=== PATIENT | female | born 1970 | race Native Hawaiian/Other Pacific Islander ===

== ENCOUNTER 2016-10-15 17:15 | Inpatient (IN) | payer BC, OTHER ==
[2016-10-15] VITALS (15 sets, daily range): BP systolic 89–153; BP diastolic 62–103; PULSE 81–97; RESP 14–26; TEMP 98.4–98.6; O2SAT 84–100
[~2016-10-15] VITALS: Ht 167.6 cm; Wt 76.4 kg
[~2016-10-15 17:15] MED LIST: HYDR-2952 PO; LORT5TAB PO; OMEP20CA5 PO; PENVK500 PO; PROM25SU8 PO
[2016-10-15] MEDS ORDERED: NITROGLYCERIN 0.4 MG SL 25 TABS/BTL SL STA (17:51)
[2016-10-15] MEDS ORDERED: ASPIRIN 81 MG CHEW TAB PO STA (17:51)
[2016-10-15] MEDS ORDERED: HEPARIN SODIUM - IV 10,000 UNITS/10 ML VIAL IV STA (17:51)
[2016-10-15] MEDS ORDERED: SODIUM CHLOR 0.9% 1000 ML INJ 1,000 ML IV ONE (17:51)
[2016-10-15] MEDS ORDERED: SODIUM CHLORIDE 0.9% FLUSH 5 ML FLUSH IVF PRN ×2 (18:00→20:00)
[2016-10-15] MEDS ORDERED: NITROGLYCERIN-DEXTROSE INJ 250 ML IV SCH (18:00)
--- NOTE | 2016-10-15 18:12 | RADRPT ---
EXAM DATE/TIME: 10/15/2016 17:58 [facility] COMPARISON: No previous studies available for comparison. INDICATIONS : Stemi-alert. Chest pain. MEDICAL HISTORY : Unobtainable. SURGICAL HISTORY : Unobtainable. ENCOUNTER: Initial ACUITY: 1 day PAIN SCORE: 10/10 LOCATION: Bilateral chest FINDINGS: A single view of the chest demonstrates the lungs to be symmetrically aerated without evidence of mas s, infiltrate or effusion. The cardiomediastinal contours are unremarkable. Osseous structures are intact. CONCLUSION: No acute disease. Viraj Mittal MD FACR on October 15, 2016 at 18:10 Board Certified Radiologist. This report was verified electronically.
[2016-10-15 18:25] LABS: AUTOMATED NEUTROPHIL # 7.2 TH/MM3 (1.8-7.7); BASOPHIL # 0.1 TH/MM3 (0-0.2); BASOPHIL % 0.6 % (0.0-2.0); EOSINOPHIL # 0.1 TH/MM3 (0-0.4); HEMATOCRIT 43.7 % (35.0-46.0); HEMO FLAGS DIFF FINAL; LYMPH % 31.9 % (9.0-44.0); LYMPHOCYTE # 3.9 TH/MM3 (1.0-4.8); MEAN CELL VOLUME 86.5 FL (80.0-100.0); MEAN CORPUSCULAR HEMOGLOBIN 29.2 PG (27.0-34.0); MEAN CORPUSCULAR HGB CONC 33.7 % (32.0-36.0); MONO % 8.1 % (0.0-8.0); NEUT % 58.4 % (16.0-70.0); PLATELET COUNT 419 TH/MM3 (150-450); RED BLOOD COUNT 5.05 MIL/MM3 (4.00-5.30); WHITE BLOOD COUNT 12.3 TH/MM3 (4.0-11.0)
[2016-10-15 18:31] LABS: I-STAT POTASSIUM 3.5 MMOL/L (3.5-4.9)
[2016-10-15 18:35] LABS: APTT (PATIENT) 27.7 SEC (24.3-30.1); INTERNATIONAL NORMALIZED RATIO 0.9 RATIO; PROTHROMBIN TIME - PATIENT 10.4 SEC (9.8-11.6)
[2016-10-15] MEDS ORDERED: IOHEXOL 350 MG/ML 100 ML BTL (for Cath Lab) OTHER ONE (18:39)
[2016-10-15] MEDS ORDERED: IOHEXOL 350 MG/ML 10 ML VIAL (for RAD DIAG) IV ONE (18:39)
[2016-10-15] MEDS ORDERED: IOHEXOL 350 MG/ML 50 ML BTL (for Cath Lab) OTHER ONE (18:39)
[2016-10-15] MEDS ORDERED: LIDOCAINE HCL 1% PF 30 ML VIAL ONE (18:45)
[2016-10-15] MEDS ORDERED: HEPARIN-NS/PF INJ 500 ML ONE ×3 (18:45→18:48)
--- NOTE | 2016-10-15 18:46 | RADRPT ---
EXAM DATE/TIME: 10/15/2016 18:23 [facility] COMPARISON: No previous studies available for comparison. INDICATIONS : Chest pain and hypoxia. IV CONTRAST: 50 cc Omnipaque 350 (iohexol) IV RADIATION DOSE: 24.64 CTDIvol (mGy) MEDICAL HISTORY : None documented. SURGICAL HISTORY : None documented. ENCOUNTER: Initial ACUITY: 1 day PAIN SCALE: 10/10 LOCATION: Chest TECHNIQUE: Volumetric scanning of the chest was performed using a pulmonary embolism protocol MIP images were reconstructed. Using automated exposure control and adjustment of the mA and/or kV acco rding to patient size, radiation dose was kept as low as reasonably achievable to obtain optimal diag nostic quality images. FINDINGS: Moderate peribronchial thickening is present. There is no evidence for central pulmona ry emboli. There is no coronary artery calcification. There is no evidence for dissection. CONCLUSION: 1. Negative for central pulmonary emboli. 2. Mild peribronchial thickening without alveolar consolidation, pleural effusion or pneumothorax. Viraj Mittal MD FACR on October 15, 2016 at 18:40 Board Certified Radiologist. This report was verified electronically.
[2016-10-15 18:52] LABS: MAGNESIUM 2.2 MG/DL (1.5-2.5)
[2016-10-15] MEDS ORDERED: MIDAZOLAM HCL 2 MG/2 ML VIAL ONE (18:58)
[2016-10-15] MEDS ORDERED: TICAGRELOR 90 MG TAB PO ONE ×2 (19:24→20:00)
--- NOTE | 2016-10-15 19:33 | PD ---
HPI Chief Complaint: Chest Pain Time Seen by Provider: 17:42 Travel History International Travel<30 days: No Contact w/Intl Traveler<30days: No Traveled to known affect area: No History of Present Illness HPI So 46-year-old woman who presents to the emergency department complaining of chest pain. States he's had intermittent chest pain for months since July. She describes it as squeezing pressure on her chest between her shoulder blades in the back. She states she was seen for the pain once several months ago in [facility], where she had a workup including a CAT scan of her chest that was negative. No further cardiac evaluation. Symptoms started today at work and are similar to when she's had pain in the past much worse than she typically has them. The been constant. She's had sweating. No shortness of breath. No nausea or vomiting. She otherwise had been feeling generally well and healthy. In between episodes she feels completely well and healthy. She has states she started control pills in July around the onset of the symptoms. No leg pain or swelling. No history of DVT or PE. History Past Medical History Medical History: Denies Significant Hx Influenza Vaccination: No Past Surgical History Surgical History: No Previous Surgery Social History Alcohol Use: No Tobacco Use: Yes (1 PPD) Allergies-Medications (Allergen,Severity, Reaction): Coded Allergies: Aspirin (Verified Allergy, Severe, 10/15/16) Penicillin (Verified Allergy, Unknown, 10/15/16) Reported Meds & Prescriptions Reported Meds & Active Scripts Active No Active Prescriptions or Reported Medications Review of Systems Except as stated in HPI: all other systems reviewed are Neg Physical Exam Narrative GENERAL: 46 year-old woman, appears uncomfortable, clutching her chest with intermittent severe chest pains. SKIN: Warm and dry. HEAD: Atraumatic. Normocephalic. EYES: Pupils equal and round. No scleral icterus. No injection or drainage. ENT: No nasal bleeding or discharge. Mucous membranes pink and moist. NECK: Trachea midline. No JVD. CARDIOVASCULAR: Regular rate and rhythm. No murmur appreciated. RESPIRATORY: No accessory muscle use. Clear to auscultation. Breath sounds equal bilaterally. GASTROINTESTINAL: Abdomen soft, non-tender, nondistended. Hepatic and splenic margins not palpable. MUSCULOSKELETAL: No obvious deformities. No edema. No calf tenderness. NEUROLOGICAL: Awake and alert. No obvious cranial nerve deficits. Motor grossly within normal limits. Normal speech. PSYCHIATRIC: Appropriate mood and affect; insight and judgment normal. Data Data Last Documented VS Vital Signs Date Time Temp Pulse Resp B/P Pulse Ox O2 Delivery O2 Flow Rate FiO2 10/15/16 18:29 95 24 100/67 91 Non-Rebreather 15 10/15/16 17:17 98.4 Orders Electrocardiogram (10/15/16 ) Troponin I (10/15/16 17:51) Ckmb (Isoenzyme) Profile (10/15/16 17:51) Complete Blood Count With Diff (10/15/16 17:51) I-Stat Profile (10/15/16 17:51) I-Stat Creatinine (10/15/16 17:51) Calcium (10/15/16 17:51) Magnesium (Mg) (10/15/16 17:51) Prothrombin Time / Inr (Pt) (10/15/16 17:51) Act Partial Throm Time (Ptt) (10/15/16 17:51) B-Type Natriuretic Peptide (10/15/16 17:51) Chest, Single Ap (10/15/16 17:51) Oxygen Administration (10/15/16 17:51) Iv Access Insert/Monitor (10/15/16 17:51) Oximetry (10/15/16 17:51) Sodium Chlor 0.9% 1000 Ml Inj (Ns 1000 M (10/15/16 17:51) Sodium Chloride 0.9% Flush (Ns Flush) (10/15/16 18:00) Aspirin Chew (Aspirin Chew) (10/15/16 17:51) Nitroglycerin Sl (Nitrostat Sl) (10/15/16 17:51) Nitroglycerin-Dextrose Inj (Nitroglyceri (10/15/16 18:00) Heparin Inj (Heparin Inj) (10/15/16 17:51) Ct Pulmonary Angiogram (10/15/16 ) Admit Order (Ed Use Only) (10/15/16 ) Labs Laboratory Tests Test 10/15/16 17:56 White Blood Count 12.3 TH/MM3 Red Blood Count 5.05 MIL/MM3 Hemoglobin 14.7 GM/DL Bedside Hemoglobin 15.0 G/DL Hematocrit 43.7 % Bedside Hematocrit 44.0 % Mean Corpuscular Volume 86.5 FL Mean Corpuscular Hemoglobin 29.2 PG Mean Corpuscular Hemoglobin 33.7 % Concent Red Cell Distribution Width 15.0 % Platelet Count 419 TH/MM3 Mean Platelet Volume 8.0 FL Neutrophils (%) (Auto) 58.4 % Lymphocytes (%) (Auto) 31.9 % Monocytes (%) (Auto) 8.1 % Eosinophils (%) (Auto) 1.0 % Basophils (%) (Auto) 0.6 % Neutrophils # (Auto) 7.2 TH/MM3 Lymphocytes # (Auto) 3.9 TH/MM3 Monocytes # (Auto) 1.0 TH/MM3 Eosinophils # (Auto) 0.1 TH/MM3 Basophils # (Auto) 0.1 TH/MM3 CBC Comment DIFF FINAL Differential Comment Prothrombin Time 10.4 SEC Prothromb Time International 0.9 RATIO Ratio Activated Partial 27.7 SEC Thromboplast Time Bedside Sodium 138 MMOL/L Bedside Potassium 3.5 MMOL/L Bedside Chloride 104 MMOL/L Bedside Blood Urea Nitrogen 15 MG/DL Bedside Creatinine 0.7 MG/DL Bedside Glucose 88 MG/DL Calcium Level 8.4 MG/DL Magnesium Level 2.2 MG/DL Total Creatine Kinase 72 U/L Troponin I 0.06 NG/ML B-Type Natriuretic Peptide 22 PG/ML [facility] Medical Decision Making Medical Screen Exam Complete: Yes Emergency Medical Condition: Yes Interpretation(s) My review of EKG: Normal sinus rhythm a rate of about 70, normal axis, normal intervals, there is anterior ST elevation in V1 and V2, but a millimeter or so, for looks like subtle less than 1 mm inferior depressions. LABS: CBC unremarkable. Point of care chemistries are unremarkable Troponin 0.06 BNP 22 Chest x-ray: No acute disease CT pulmonary angiogram: Negative for central pulmonary emboli. Mild peribronchial thickening without OB or consolidation, pleural effusion or pneumothorax. Differential Diagnosis ACS, vasospastic angina, dissection, PE, pancreatitis, other Narrative Course Medical decision making 46-year-old presents emergent from with severe pain radiating between her shoulder blades in the back, pressure-like with squeezing, intermittent, history of similar symptoms are mainly for the past couple months. Previous workup includes apparently a negative CT pulmonary angiogram although this is unclear. EKG suggests some anterior precordial ST elevations but it subtle, may not meet criteria for STEMI alert. However given her symptoms, I did activate STEMI alert and speak with Dr. Jareth Capps who came to the bedside to evaluate the patient. She started to develop worsening hypoxia following nitroglycerin, with sats down into the low 80s on a nonrebreather mask. Given her age, and the hypoxia, additional concern was for PE. Patient was taken emergently to CT scanner where CT scan was done, and interpreted in real time by the radiologist as negative for PE, and the patient was then taken emergently to the heart catheterization lab. Critical Care Narrative Aggregate critical care time was 35 minutes. Time to perform other separately billable procedures was not included in the critical care time. My time did not include minutes spent treating any other patients simultaneously or on activities that did not directly contribute to the patient's treatment. The services I provided to this patient were to treat and/or prevent clinically significant deterioration that could result in: , disability, worsening function. I provided critical care services requiring my management, as noted below: Chart data review, documentation time, medication orders and management, vital sign assessments/reviewing monitor data, ordering and reviewing lab tests, ordering and interpreting/reviewing x-rays and diagnostic studies, care of the patient and discussion of the patient with the admitting physicians. Diagnosis Primary Impression: [place] (myocardial infarction) Qualified Code: I21.3 - ST elevation myocardial infarction (STEMI), unspecified artery Additional Impression: Hypoxia Scripts No Active Prescriptions or Reported Meds Giovani Sneed MD Oct 15, 2016 19:33
[2016-10-15] MEDS ORDERED: SODIUM CHLOR 0.9% 1000 ML INJ 1,000 ML IV SCH (19:59)
[2016-10-15] MEDS ORDERED: ONDANSETRON HCL 4 MG/2 ML VIAL IV PRN (20:00)
[2016-10-15] MEDS ORDERED: MISC INFORMATION XX ONE (20:00)
[2016-10-15] MEDS ORDERED: ATROPINE SULFATE 1 MG/ML VIAL IV PRN (20:00)
[2016-10-15] MEDS ORDERED: PILL SPLITTER OTHER PRN (20:15)
[2016-10-15] MEDS: SODIUM CHLORIDE 0.9% FLUSH 5 ML FLUSH IVF SCH (20:58)
[2016-10-15] MEDS ORDERED: ATORVASTATIN 10 MG TAB PO SCH (21:00)
[2016-10-15] MEDS: METOPROLOL TARTRATE 25 MG TAB PO SCH (21:00)
--- NOTE | 2016-10-15 22:05 | MA ---
cc: NESSAMARIO Bee DATE 10/15/2016 DATE OF 1970 PROCEDURES PERFORMED 1. Left heart catheterization 2. Selective right and left coronary angiography. 3. Left ventricular hemodynamics. 4. Successful PCI to proximal LAD. INDICATION ST-elevation myocardial infarction. DESCRIPTION OF PROCEDURE Consent signed. The patient was brought emergently to the cardiac cathode builder. The right groin was prepped and draped in sterile fashion. Using 1% lidocaine for local anesthesia and a micropuncture kit, a 6-Italian sheath was inserted into the right common femoral artery. Right common femoral artery angiography was performed to confirm position of the sheath. Then selective right and left coronary angiography was performed with a JL-4 and a JR-4 diagnostic catheter. Angiography was performed in multiple views. The JR diagnostic catheter was introduced to the left ventricle to record hemodynamics and then pullback. We identified a lesion in the proximal LAD which was 80% narrowed with haziness and LISSETTE II flow which explained the patient's symptoms and findings. Thus we proceed to intervene. Anticoagulation Angiomax. The left main was engaged with an EBU 3.5 guide. The LAD vessel was wired with a run-through wire which was anchored distally. The vessel was predilated with 2.5, 12 balloon followed by insertion and deployment of 3.0x15 drug-eluting stent. Final angiographic views revealed good stent apposition and expansion with LISSETTE III flow. The patient tolerated the procedure well without complications. Estimated blood loss less than 50 mL. Total contrast 120 mL. The right groin access site was closed with a Perclose device. The patient was loaded with Brilinta after the procedure. RESULTS: Left ventricle. The left ventricular pressure was 95/5 with an LVEDP 24. The aortic pressure was 85/57 with a mean 72. ANGIOGRAPHY 1. The Left main is patent with non-obstructive CAD. 2. The Left circumflex artery is patent with nonobstructive coronary artery disease. OM-1 and OM-2 are patent. 3. The LAD is a transapical vessel. It has a proximal 80% lesion, has a slow flow. Diagonals are patent 4. The Right coronary artery is a dominant vessel giving off the PDA, has nonobstructive CAD and LISSETTE III flow. CONCLUSION 1. Successful PCI / SONJA to proximal LAD in the setting of a STEMI. 2. Elevated LVEDP. RECOMMENDATIONS 1. Dual antiplatelet therapy with aspirin and Brilinta for one year per ACC guidelines. 2. Aggressive medical management for coronary artery disease including beta- blockers, KELSEY inhibitors, statins as tolerated by the patient. 3. Post cath care including IV hydration. 4. groin site care. 5. After bed rest encourage ambulation. 6. The patient should get a transthoracic echocardiogram to assess LV systolic function before discharge. MD ELIZABETH Viveros/KK /7:46 PM /9:53 PM [facility]
--- NOTE | 2016-10-15 22:11 | MB ---
cc: MARIO CADET DATE OF CONSULTATION 10/15/16 REASON FOR CONSULTATION STEMI HISTORY OF PRESENT ILLNESS 47-year-old female with who is an active smoker that presented to the emergency department with worsening chest pressure that radiated to the shoulder blade for a day. She reports that she had had intermittent chest pain since July. She describes the pain as squeezing pressure that radiates to the shoulder blades and back. She went [facility] emergency department with similar complaints, at that time a CT scan was negative for PE or dissection and no further cardiac evaluation was pursued. However, symptoms continued. Today on presentation to the emergency department the EKG revealed ST elevations in lead V1 and V2. The patient was sweating, complaining of chest pressure and hypoxic and symptoms relieved with nitroglycerin. She denies palpitations, shortness of breath, chest trauma, bleeding issues, lightheadedness, syncope, PND, leg edema, nausea, vomiting, diarrhea, fever or chills. CTA scan performed here was negative for PE or dissection. Interventional cardiology has been consulted for further management and evaluation of what appears to be a STEMI. REVIEW OF SYSTEMS Negative except for the ones mentioned in the HPI. PAST MEDICAL HISTORY Unremarkable. PAST SURGICAL HISTORY Unremarkable. SOCIAL HISTORY She is an active smoker. Denies alcohol use or illicit drug use. ALLERGIES PENICILLIN PHYSICAL EXAMINATION VITAL SIGNS: Temperature of 97, respiratory rate 24, pulse of 95, blood pressure 100/67, O2 sat 91% on a non-rebreather. GENERAL: She is awake, alert, oriented x3, complaining of chest discomfort, 10/ 10, in distress. NECK: No JVD, no carotid bruits. HEART: Tachycardic. No murmurs, rubs or gallops appreciated. LUNGS: Clear to auscultation bilaterally. No wheezes or rhonchi or rales. ABDOMEN: Soft, nontender, nondistended. Positive bowel sounds. EXTREMITIES: No cyanosis or edema and pulses throughout. LABORATORY DATA CBC - hemoglobin 14, hematocrit 43, platelet count of 418, INR 0.9. Chemistries - sodium 138, potassium 3.5, BUN 15, creatinine 0.7. First set of troponin 0.06. BNP 22. IMAGING STUDIES X-rays showed no acute cardiopulmonary process. CTA of the chest shows no PE and no dissection. I reviewed the CT personally with Dr. Mittal. CARDIOLOGY STUDIES EKG shows sinus rhythm with ST elevations in V1 and V2 and inferior depressions suggesting ischemia. ASSESSMENT/PLAN 46-year-old female smoker who presented with chest pressure concerning for a STEMI. She has a negative CTA for pulmonary emboli or dissection. She remains hemodynamically stable, however, complaining of severe chest pressure. At this time, I think it is reasonable to take the patient to the cardiac director of labor and delivery for immediate PCI. Risks and benefits of left heart cath/intervention including but not limited to bleeding, acute kidney injury, stroke, emergent bypass surgery, neurovascular trauma and have been explained to the patient and she is willing to proceed. In the meantime. we will continue n.p.o.. Continue nitro drip. Thank you for the opportunity to take part in the care of this patient. Further therapy to be determined. MD ELIZABETH Viveros/SA /7:54 PM /9:56 PM MTDMarcos
[2016-10-16] VITALS (15 sets, daily range): BP systolic 91–123; BP diastolic 67–78; PULSE 72–92; RESP 16; TEMP 97.2–98.5; O2SAT 95–98
[2016-10-16 05:33] LABS: AUTOMATED NEUTROPHIL # 8.1 TH/MM3 (1.8-7.7); BASOPHIL # 0.1 TH/MM3 (0-0.2); BASOPHIL % 0.6 % (0.0-2.0); EOSINOPHIL # 0.1 TH/MM3 (0-0.4); EOSINOPHIL % 0.5 % (0.0-4.0); HEMATOCRIT 40.9 % (35.0-46.0); HEMO FLAGS DIFF FINAL; LYMPH % 23.9 % (9.0-44.0); LYMPHOCYTE # 2.9 TH/MM3 (1.0-4.8); MEAN CELL VOLUME 86.2 FL (80.0-100.0); MEAN CORPUSCULAR HEMOGLOBIN 29.3 PG (27.0-34.0); MONO % 7.4 % (0.0-8.0); NEUT % 67.6 % (16.0-70.0); PLATELET COUNT 358 TH/MM3 (150-450); RED BLOOD COUNT 4.75 MIL/MM3 (4.00-5.30)
[2016-10-16 06:02] LABS: BICARBONATE 25.9 MEQ/L (21.0-32.0); HDL CHOLESTEROL 46.2 MG/DL (40.0-60.0)
[2016-10-16] MEDS: SODIUM CHLORIDE 0.9% FLUSH 5 ML FLUSH IVF SCH (08:38)
[2016-10-16] MEDS: METOPROLOL TARTRATE 25 MG TAB PO SCH (09:00)
[2016-10-16] MEDS ORDERED: ASPIRIN 81 MG CHEW TAB PO SCH (09:00)
[2016-10-16] MEDS ORDERED: TICAGRELOR 90 MG TAB PO SCH (09:00)
[2016-10-16] MEDS ORDERED: RAMIPRIL 2.5 MG CAP PO SCH (09:00)
--- NOTE | 2016-10-16 09:13 | PD.CARD.PN ---
Subjective Subjective Remarks no complaints no overnight events Objective Medications Current Medications Medications (Trade) Dose Ordered Sig/Shalonda Route Start Time Stop Time Status Last Admin (Nitroglycerin-Dextrose Inj) 250 ml @ 0 mls/hr TITRATE IV 10/15/16 18:00 10/15/16 18:02 (NS Flush) 2 ml UNSCH PRN IVF 10/15/16 20:00 (NS Flush) 2 ml BID IVF 10/15/16 21:00 10/16/16 08:38 (Aspirin Chew) 81 mg DAILY PO 10/16/16 09:00 10/16/16 08:38 (Brilinta) 90 mg BID PO 10/16/16 09:00 10/16/16 08:38 (Atropine Inj) 0.5 mg UNSCH PRN IV 10/15/16 20:00 (Zofran Inj) 4 mg Q4H PRN IV 10/15/16 20:00 (Lopressor) 12.5 mg BID PO 10/15/16 21:00 (Altace) 2.5 mg DAILY PO 10/16/16 09:00 (Lipitor) 10 mg HS PO 10/15/16 21:00 10/15/16 20:58 (Pill Splitter) 1 ea UNSCH PRN OTHER 10/15/16 20:15 Vital Signs / I&O Vital Signs Date Time Temp Pulse Resp B/P Pulse Ox O2 Delivery O2 Flow Rate FiO2 10/16/16 06:00 77 10/16/16 05:00 80 10/16/16 04:00 74 10/16/16 03:00 74 10/16/16 03:00 98.0 74 16 123/78 98 10/16/16 02:09 78 10/16/16 02:00 75 16 105/73 97 10/16/16 01:00 76 10/16/16 01:00 92 16 104/68 97 10/16/16 00:00 98.2 79 16 91/70 97 10/16/16 00:00 79 10/15/16 23:00 85 16 103/70 97 10/15/16 23:00 85 10/15/16 22:00 85 10/15/16 22:00 85 16 99/70 97 10/15/16 21:00 88 16 98/73 97 10/15/16 21:00 88 10/15/16 20:30 93 16 89/70 98 10/15/16 20:00 93 10/15/16 20:00 92 16 94/67 97 10/15/16 19:45 98.6 92 16 104/68 88 10/15/16 19:00 93 10/15/16 18:29 95 24 100/67 91 Non-Rebreather 15 10/15/16 18:26 96 24 94/62 96 Non-Rebreather 15 10/15/16 18:13 80 Non-Rebreather 15 10/15/16 18:11 97 26 135/91 84 Nasal Cannula 4 10/15/16 18:03 136/92 126/103 10/15/16 17:58 99 Nasal Cannula 2.00 10/15/16 17:54 94 Room Air 10/15/16 17:54 95 Nasal Cannula 2 10/15/16 17:52 87 18 153/88 94 Nasal Cannula 2 10/15/16 17:17 98.4 81 14 144/92 100 Room Air I/O 10/15/16 10/15/16 10/15/16 10/16/16 10/16/16 10/16/16 07:00 15:00 23:00 07:00 15:00 23:00 Intake Total 870 ml Output Total 2000 ml Balance -1130 ml Intake Oral 420 ml IV Total 450 ml Output Urine Total 2000 ml Physical Exam GENERAL: Well-nourished, well-developed patient. SKIN: Warm and dry. HEAD: Normocephalic. EYES: No scleral icterus. No injection or drainage. NECK: Supple, trachea midline. No JVD or lymphadenopathy. CARDIOVASCULAR: Regular rate and rhythm without murmurs, gallops, or rubs. RESPIRATORY: Breath sounds equal bilaterally. No accessory muscle use. GASTROINTESTINAL: Abdomen soft, non-tender, nondistended. EXTREMITIES: No cyanosis, or edema. NEUROLOGICAL: Awake, alert, and oriented x 3. Non-focal. Laboratory Laboratory Tests Test 10/15/16 10/16/16 17:56 04:45 White Blood Count 12.3 TH/MM3 12.0 TH/MM3 Red Blood Count 5.05 MIL/MM3 4.75 MIL/MM3 Hemoglobin 14.7 GM/DL 13.9 GM/DL Bedside Hemoglobin 15.0 G/DL Hematocrit 43.7 % 40.9 % Bedside Hematocrit 44.0 % Mean Corpuscular Volume 86.5 FL 86.2 FL Mean Corpuscular Hemoglobin 29.2 PG 29.3 PG Mean Corpuscular Hemoglobin 33.7 % 34.0 % Concent Red Cell Distribution Width 15.0 % 15.0 % Platelet Count 419 TH/MM3 358 TH/MM3 Mean Platelet Volume 8.0 FL 8.0 FL Neutrophils (%) (Auto) 58.4 % 67.6 % Lymphocytes (%) (Auto) 31.9 % 23.9 % Monocytes (%) (Auto) 8.1 % 7.4 % Eosinophils (%) (Auto) 1.0 % 0.5 % Basophils (%) (Auto) 0.6 % 0.6 % Neutrophils # (Auto) 7.2 TH/MM3 8.1 TH/MM3 Lymphocytes # (Auto) 3.9 TH/MM3 2.9 TH/MM3 Monocytes # (Auto) 1.0 TH/MM3 0.9 TH/MM3 Eosinophils # (Auto) 0.1 TH/MM3 0.1 TH/MM3 Basophils # (Auto) 0.1 TH/MM3 0.1 TH/MM3 CBC Comment DIFF FINAL DIFF FINAL Differential Comment Prothrombin Time 10.4 SEC Prothromb Time International 0.9 RATIO Ratio Activated Partial 27.7 SEC Thromboplast Time Bedside Sodium 138 MMOL/L Bedside Potassium 3.5 MMOL/L Bedside Chloride 104 MMOL/L Bedside Blood Urea Nitrogen 15 MG/DL Bedside Creatinine 0.7 MG/DL Bedside Glucose 88 MG/DL Calcium Level 8.4 MG/DL 8.1 MG/DL Magnesium Level 2.2 MG/DL Total Creatine Kinase 72 U/L Troponin I 0.06 NG/ML B-Type Natriuretic Peptide 22 PG/ML Lipase 102 U/L Sodium Level 142 MEQ/L Potassium Level 4.0 MEQ/L Chloride Level 109 MEQ/L Carbon Dioxide Level 25.9 MEQ/L Anion Gap 7 MEQ/L Blood Urea Nitrogen 10 MG/DL Creatinine 0.65 MG/DL Estimat Glomerular Filtration 98 ML/MIN Rate Random Glucose 79 MG/DL Triglycerides Level 84 MG/DL Cholesterol Level 156 MG/DL LDL Cholesterol 93 MG/DL HDL Cholesterol 46.2 MG/DL Cholesterol/HDL Ratio 3.37 RATIO Imaging Last Impressions Chest X-Ray 10/15/16 [id number] Signed Impressions: Service Date/Time: Saturday, October 15, 2016 17:58 - CONCLUSION: No acute disease. Viraj Mittal MD FACR CT Angiography 10/15/16 0000 Signed Impressions: Service Date/Time: Saturday, October 15, 2016 18:23 - CONCLUSION: 1. Negative for central pulmonary emboli. 2. Mild peribronchial thickening without alveolar consolidation, pleural effusion or pneumothorax. Viraj Mittal MD FACR Assessment and Plan Problem List: (1) [place] (myocardial infarction) Assessment and Plan: s/p PCI to LAD Doing well Chest pain free Ambulating without difficulty Cont DAPT ASA and Brillinta Aggressive medical management for CAD Encourage out of bed and incentive spirometry Smoking cessation 2Decho today to assess LV function Stable to d/c home from CV standpoint (2) Hypoxia Problem Qualifiers (1) [place] (myocardial infarction): Qualified Code: I21.3 - ST elevation myocardial infarction (STEMI), unspecified artery Jareth Luu MD Oct 16, 2016 09:13
[2016-10-16] MEDS ORDERED: Aspirin Chew PO (10:46)
[2016-10-16] MEDS ORDERED: BRIL90TA PO (10:46)
[2016-10-16] MEDS ORDERED: RAMI2.5C PO (10:46)
[2016-10-16] MEDS ORDERED: METO25TA3 PO (10:46)
[2016-10-16] MEDS ORDERED: LIPI10TA PO (10:46)
[2016-10-16] MEDS ORDERED: ACETAMINOPHEN 325 MG TAB PO PRN (11:00)
[2016-10-16] MEDS ORDERED: NALOXONE HCL 0.4 MG/ML AMP IV PRN (11:00)
[2016-10-16] MEDS ORDERED: SODIUM CHLORIDE 0.9% FLUSH 5 ML FLUSH FLUSH PRN (11:00)
[2016-10-16] MEDS ORDERED: ONDANSETRON HCL 4 MG/2 ML VIAL IVP PRN (11:00)
[2016-10-16] MEDS ORDERED: HEPARIN SODIUM - SQ 10,000 UNITS/ML VIAL SQ SCH (11:00)
--- NOTE | 2016-10-16 11:15 | HHI.HP ---
HPI Service [facility] Primary Care Physician Unknown Admission Diagnosis ND, Hypoxia Diagnoses: Chief Complaint: Chest pain Travel History International Travel<30 Days: No Contact w/Intl Traveler <30 Da: No Traveled to Known Affected Are: No History of Present Illness 47 years old female who is an active smoker presented to the ED with worsening chest pain in a nature of pressure radiate to the shoulder blade for about 1 day, pain is intermittent and comes and goes, patient went to [facility] emergency room [place] where she had a CAT scan to rule out PE or dissection, considering her history of smoking and also recent starting on hormonal therapy for menstrual regulation. Pain was negative. Patient denied any short of breath lightheadedness, PND or leg swelling nausea vomiting diarrhea abdominal pain fever or chills. She went to heart catheter when she had PCI/SONJA in the proximal LAD by Dr. Capps, today patient was sitting on the chair, her family at the bedside, she was very upset knowing that she need to quit smoking, she doesn't seem to be having the well to do so, she asked many question whether her ND was related to her lower extremity superficial varicose vein, or to the control pills, I did explain to her that smoking is #1 cluprit of her problem. She also asked if this can be recurrent in the future, so I explained to her that if she continued to smoke this can happen again, her answer was "I can try to reduce the amount of smoking but I cannot stop completely" Patient and her family had multiple questions regarding the condition and what precipitated and how to prevent it, lengthy discussion and explanation has been done all their questions were answered to satisfaction Review of Systems Other All 10 systems reviewed and was positive for what is mentioned in history of present illness otherwise negative Past Family Social History Past Medical History Patient denying being aware of any previous past medical history, she does have lower extremity superficial varicose vein Allergies: Coded Allergies: Aspirin (Verified Allergy, Severe, 10/15/16) Penicillin (Verified Allergy, Unknown, 10/15/16) Family History Patient aware of any hereditary disease in the family, or coronary artery disease problems Social History Positive smoking 1 pack per day for many years, denied alcohol or illicit drug abuse Physical Exam Vital Signs Vital Signs Date Time Temp Pulse Resp B/P Pulse Ox O2 Delivery O2 Flow Rate FiO2 10/16/16 10:42 98.5 84 16 114/67 97 10/16/16 06:00 77 10/16/16 05:00 80 10/16/16 04:00 74 10/16/16 03:00 74 10/16/16 03:00 98.0 74 16 123/78 98 10/16/16 02:09 78 10/16/16 02:00 75 16 105/73 97 10/16/16 01:00 76 10/16/16 01:00 92 16 104/68 97 10/16/16 00:00 98.2 79 16 91/70 97 10/16/16 00:00 79 10/15/16 23:00 85 16 103/70 97 10/15/16 23:00 85 10/15/16 22:00 85 10/15/16 22:00 85 16 99/70 97 10/15/16 21:00 88 16 98/73 97 10/15/16 21:00 88 10/15/16 20:30 93 16 89/70 98 10/15/16 20:00 93 10/15/16 20:00 92 16 94/67 97 10/15/16 19:45 98.6 92 16 104/68 88 10/15/16 19:00 93 10/15/16 18:29 95 24 100/67 91 Non-Rebreather 15 10/15/16 18:26 96 24 94/62 96 Non-Rebreather 15 10/15/16 18:13 80 Non-Rebreather 15 10/15/16 18:11 97 26 135/91 84 Nasal Cannula 4 10/15/16 18:03 136/92 126/103 10/15/16 17:58 99 Nasal Cannula 2.00 10/15/16 17:54 94 Room Air 10/15/16 17:54 95 Nasal Cannula 2 10/15/16 17:52 87 18 153/88 94 Nasal Cannula 2 10/15/16 17:17 98.4 81 14 144/92 100 Room Air Physical Exam GENERAL: This is a well-nourished, well-developed patient, in no apparent distress. SKIN: No rashes, warm and dry HEAD: Atraumatic. Normocephalic. EYES: Pupils equal round and reactive. Extraocular motions intact. No scleral icterus. ENT: Nose without bleeding, or drainage, Airway patent. NECK: Trachea midline. Supple CARDIOVASCULAR: Regular rate and rhythm without murmurs, gallops, or rubs. RESPIRATORY: Fair air entry bilaterally. No wheezes, rales, or rhonchi. GASTROINTESTINAL: Abdomen soft, non-tender, nondistended. Positive bowel sounds MUSCULOSKELETAL: Extremities without clubbing, cyanosis, or edema. Pedal pulses appreciated NEUROLOGICAL: Awake and alert. Moves all extremity. Normal speech.no focal neurological deficit Laboratory Laboratory Tests Test 10/15/16 10/16/16 17:56 04:45 White Blood Count 12.3 12.0 Red Blood Count 5.05 4.75 Hemoglobin 14.7 13.9 Bedside Hemoglobin 15.0 Hematocrit 43.7 40.9 Bedside Hematocrit 44.0 Mean Corpuscular Volume 86.5 86.2 Mean Corpuscular Hemoglobin 29.2 29.3 Mean Corpuscular Hemoglobin 33.7 34.0 Concent Red Cell Distribution Width 15.0 15.0 Platelet Count 419 358 Mean Platelet Volume 8.0 8.0 Neutrophils (%) (Auto) 58.4 67.6 Lymphocytes (%) (Auto) 31.9 23.9 Monocytes (%) (Auto) 8.1 7.4 Eosinophils (%) (Auto) 1.0 0.5 Basophils (%) (Auto) 0.6 0.6 Neutrophils # (Auto) 7.2 8.1 Lymphocytes # (Auto) 3.9 2.9 Monocytes # (Auto) 1.0 0.9 Eosinophils # (Auto) 0.1 0.1 Basophils # (Auto) 0.1 0.1 CBC Comment DIFF FINAL DIFF FINAL Differential Comment Prothrombin Time 10.4 Prothromb Time International 0.9 Ratio Activated Partial 27.7 Thromboplast Time Bedside Sodium 138 Bedside Potassium 3.5 Bedside Chloride 104 Bedside Blood Urea Nitrogen 15 Bedside Creatinine 0.7 Bedside Glucose 88 Calcium Level 8.4 8.1 Magnesium Level 2.2 Total Creatine Kinase 72 Troponin I 0.06 B-Type Natriuretic Peptide 22 Lipase 102 Sodium Level 142 Potassium Level 4.0 Chloride Level 109 Carbon Dioxide Level 25.9 Anion Gap 7 Blood Urea Nitrogen 10 Creatinine 0.65 Estimat Glomerular Filtration 98 Rate Random Glucose 79 Triglycerides Level 84 Cholesterol Level 156 LDL Cholesterol 93 HDL Cholesterol 46.2 Cholesterol/HDL Ratio 3.37 Result Diagram: 10/16/16 0445 10/16/16 0445 Imaging Last Impressions Chest X-Ray 10/15/16 1751 Signed Impressions: Service Date/Time: Saturday, October 15, 2016 17:58 - CONCLUSION: No acute disease. Viraj Mittal MD FACR CT Angiography 10/15/16 0000 Signed Impressions: Service Date/Time: Saturday, October 15, 2016 18:23 - CONCLUSION: 1. Negative for central pulmonary emboli. 2. Mild peribronchial thickening without alveolar consolidation, pleural effusion or pneumothorax. Viraj Mittal MD FACR Assessment and Plan Assessment and Plan 46 years old female active smoker presented with chest pain, found to have STEMI, started on aspirin morphine oxygen beta jose angel, Dr. Capps consulted, patient was taken to heart catheter, PCI and SONJA placed in the proximal LAD, patient placed on ramipril, statin, metoprolol, aspirin, Brilinta for 1 year. Patient had 7 beats of V. tach overnight, mostly post ND, she is doing well now but she does feel some palpitation, earlier this morning patient cleared by Dr. Capps for discharge, will discuss with Dr. Capps to reconfirm clearance for discharge. Lengthy discussion with the patient and her family at the bedside regarding coronary artery disease and atherosclerosis condition, exacerbating, precipitating, preventative measures All questions were answered. Very lengthy discussion and counseling and education about smoking cessation has been provided to the patient and her family Discussed Condition With Patient and her family Physician Certification 2 Midnight Certification Type: Admission for Inpatient Services Order for Inpatient Services The services are ordered in accordance with Medicare regulations or non- Medicare payer requirements, as applicable. In the case of services not specified as inpatient-only, they are appropriately provided as inpatient services in accordance with the 2-midnight benchmark. Estimated LOS (days): 2 days is the estimated time the patient will need to remain in the hospital, assuming treatment plan goals are met and no additional complications. Post-Hospital Plan: Home Sejal Lin MD Oct 16, 2016 11:15
--- NOTE | 2016-10-16 11:16 | HHI.PR ---
Addendum to Inpatient Note Additional Information Discharge patient to home Condition on discharge: Improved Healthy heart Diet as tolerated, patient advised about quitting smoking Ad Audra activity Rx written: See med rec Follow-up with primary care physician, cardiology as directed Sejal Lin MD Oct 16, 2016 11:16
--- NOTE | 2016-10-16 19:47 | EKG ---
Date Performed: 10/16/2016 Time Performed: 04:56:32 PTAGE: 46 years EKG: Sinus rhythm Possible anterior infarct - age undetermined Low QRS voltages in precordial leads Abnormal ECG PREVIOUS TRACING : 10/15/2016 20.14 Compared to prior tracing no significant change DOCTOR: Heather Jhaveri Interpretating Date/Time 10/16/2016 19:46:16
--- NOTE | 2016-10-16 20:13 | EKG ---
Date Performed: 10/15/2016 Time Performed: 20:14:24 PTAGE: 46 years EKG: Sinus rhythm Low QRS voltages in precordial leads Possible old anteroseptal AK Borderline ECG PREVIOUS TRACING : 10/15/2016 17.43 Compared to prior tracing no significant change DOCTOR: Heather Jhaveri Interpretating Date/Time 10/16/2016 20:12:52
--- NOTE | 2016-10-16 20:23 | EKG ---
Date Performed: 10/15/2016 Time Performed: 18:10:57 PTAGE: 46 years EKG: Sinus rhythm LOW QRS VOLTAGE IN PRECORDIAL LEADS POSSIBLE ANTERIOR MYOCARDIAL INFARCTION ABNORMAL ECG PREVIOUS TRACING : 10/15/2016 17.43 Compared to prior tracing no significant change DOCTOR: Heather Jhaveri Interpretating Date/Time 10/16/2016 20:22:00
--- NOTE | 2016-10-16 20:24 | EKG ---
Date Performed: 10/15/2016 Time Performed: 18:03:25 PTAGE: 46 years EKG: Sinus rhythm LOW QRS VOLTAGE IN PRECORDIAL LEADS ANTEROSEPTAL MYOCARDIAL INFARCTION ABNORMAL ECG PREVIOUS TRACING : 10/15/2016 17.43 Compared to prior tracing no significant change DOCTOR: Heather Jhaveri Interpretating Date/Time 10/16/2016 20:23:07
--- NOTE | 2016-10-16 20:29 | EKG ---
Date Performed: 10/15/2016 Time Performed: 17:43:12 PTAGE: 46 years EKG: Sinus rhythm BORDERLINE ECG PREVIOUS TRACING : 10/15/2016 17.42 Compared to prior tracing no significant change DOCTOR: Heather Jhaveri Interpretating Date/Time 10/16/2016 20:28:26
[2016-10-16] MEDS ORDERED: SODIUM CHLORIDE 0.9% FLUSH 5 ML FLUSH FLUSH SCH (21:00)
== END 2016-10-16 18:29 | disposition home or self-care (01) | DRG 247 ==
LOC: NEPE 17:15 → NEDA 18:35 → HCIN 19:52
PROVIDERS: ADMIT Hospitalist; ATTEND Hospitalist
PROC: 027034Z Dilation of Coronary Artery, One Artery with Drug-eluting Intraluminal Device, Percutaneous Approach (ICD-10-PCS; principal; 2016-10-15)
PROC: 4A023N7 Measurement of Cardiac Sampling and Pressure, Left Heart, Percutaneous Approach (ICD-10-PCS; 2016-10-15)
PROC: B2111ZZ Fluoroscopy of Multiple Coronary Arteries using Low Osmolar Contrast (ICD-10-PCS; 2016-10-15)
PROC: B2151ZZ Fluoroscopy of Left Heart using Low Osmolar Contrast (ICD-10-PCS; 2016-10-15)
PROC: B41F1ZZ Fluoroscopy of Right Lower Extremity Arteries using Low Osmolar Contrast (ICD-10-PCS; 2016-10-15)
DX: I21.02 ST elevation (STEMI) myocardial infarction involving left anterior descending coronary artery (principal); I47.2 Ventricular tachycardia; I25.119 Atherosclerotic heart disease of native coronary artery with unspecified angina pectoris; F17.200 Nicotine dependence, unspecified, uncomplicated; R09.02 Hypoxemia; I83.90 Asymptomatic varicose veins of unspecified lower extremity
CPT/HCPCS: 71010; 71275; 80048; 80061; 82310; 82435; 82550; 82565; 82947; 83690; 83735; 83880; 84132; 84295; 84484; 84520; 85025; 85610; 85730; 92941; 93005; 93454; 96365; 96374; 96375; C1725; C1760; C1769; C1874; C1887; C1893; G0269; J1644; J2250; J3010; J7030; Q9967